=== PATIENT | male | born 1985 | race Caucasian/White ===

== ENCOUNTER 2025-07-19 12:22 | Emergency (ER) | payer BC ==
[2025-07-19] MEDS: Ondansetron 4 MG Tab.DIS PO ONE (12:41)
[2025-07-19] MEDS: Acetaminophen/HYDROcodone 325-5 MG Tab PO ONE (12:49)
[2025-07-19] MEDS: Ketorolac 30 MG/ML SDV IM ONE (12:52)
== END 2025-07-19 13:03 | disposition home or self-care (01) ==
LOC: KA.ED 12:22
DX: K02.9 Dental caries, unspecified (principal); K03.2 Erosion of teeth; Z88.0 Allergy status to penicillin; Z88.2 Allergy status to sulfonamides
CPT/HCPCS: 96372; 99283; A9270; J1885

== ENCOUNTER 2025-08-02 15:33 | Emergency (ER) | payer SELFPAY ==
[2025-08-02] MEDS: guaiFENesin/Dextromethorphan 100-10 MG/5 ML Soln 5 ML Cup PO ONE (17:05)
== END 2025-08-02 17:45 | disposition home or self-care (01) ==
LOC: KA.ED 15:35
DX: J06.9 Acute upper respiratory infection, unspecified (principal); B97.89 Other viral agents as the cause of diseases classified elsewhere; Z88.1 Allergy status to other antibiotic agents; Z88.0 Allergy status to penicillin; Z79.899 Other long term (current) drug therapy
CPT/HCPCS: 71046; 87428; 87651; 94640; 99284; J7620; A9270-GY

== ENCOUNTER 2025-08-24 08:33 | Emergency (ER) | payer BC ==
[2025-08-24] MEDS ORDERED: Sodium Chloride 0.9% 10 ML Syringe FLUSH PRN (08:51)
[2025-08-24] MEDS: Ondansetron 4 MG/2 ML SDV IVPUSH ONE (08:58)
[2025-08-24] MEDS: Ketorolac 30 MG/ML SDV IVPUSH ONE (08:59)
[2025-08-24 09:33] LABS: INFLUENZA A NAA NEGATIVE (NEGATIVE); INFLUENZA B NAA NEGATIVE (NEGATIVE); RESPIRATORY SYNCYTIAL VIR NAA NEGATIVE (NEGATIVE)
[2025-08-24 09:34] LABS: CORONAVIRUS COVID-19 NAA NEGATIVE (NEGATIVE)
== END 2025-08-24 09:53 | disposition home or self-care (01) ==
LOC: KA.ED 08:45
DX: J06.9 Acute upper respiratory infection, unspecified (principal); B97.89 Other viral agents as the cause of diseases classified elsewhere; Z88.2 Allergy status to sulfonamides; Z88.0 Allergy status to penicillin
CPT/HCPCS: 87637; 96361; 96374; 96375; 99283; 99284-25; J1885; J2405; J7030